=== PATIENT | female | born 1990 | race Caucasian/White ===

== ENCOUNTER 2016-06-13 17:10 | Emergency (ER) | payer OTHER | END 2016-06-13 18:53 | disposition home or self-care (01) | DX: M25.462 Effusion, left knee (principal); X50.0XXA Overexertion from strenuous movement or load, initial encounter; Y93.23 Activity, snow (alpine) (downhill) skiing, snowboarding, sledding, tobogganing and snow tubing; Y92.89 Other specified places as the place of occurrence of the external cause ==

== ENCOUNTER 2016-06-25 15:23 | Outpatient (CLI) | payer OTHER | END 2016-06-25 15:24 | disposition home or self-care (01) | DX: S89.82XA Other specified injuries of left lower leg, initial encounter (principal); M23.92 Unspecified internal derangement of left knee ==

== ENCOUNTER 2016-12-27 18:49 | Emergency (ER) | payer OTHER ==
[2016-12-27] MEDS ORDERED: LIDOCAINE 2% 10 ML MDV ONE (19:01)
[2016-12-27] MEDS ORDERED: CEPHALEXIN 250 MG CAPSULE PO STA (19:40)
--- NOTE | 2016-12-27 19:43 | ED Physician Documentation ---
History of Present Illness - Stated complaint Stated Complaint: FINGER PX - Chief complaint Chief Complaint: Ext Problem - History obtained from History obtained from: Patient - History of Present Illness Timing: How many days ago (several) Pain level max: 4 Pain level now: 3 Improved by: nothing Worsened by: nothing - Additonal information Additional information: L index finger, swelling, erythema. Drained pus earlier Review of Systems Constitutional: denies: Fever, Chills Nose: denies: Rhinorrhea / runny nose, Congestion GI: denies: Vomiting : denies: Now EGA Skin: denies: Rash PD PAST MEDICAL HISTORY - Past Medical History Past Medical History: No - Past Surgical History Past Surgical History: Yes HEENT: Tonsil/Adenoidectomy - Present Medications Home Medications: Ambulatory Orders Medication Instructions Recorded Confirmed Cephalexin [Keflex] 500 mg PO Q6H #28 capsule 12/27/16 buPROPion [Wellbutrin Sr] 100 mg PO DAILY 12/27/16 12/27/16 busPIRone [Buspar] 10 mg PO DAILY 12/27/16 12/27/16 - Allergies Allergies/Adverse Reactions: Allergies Allergy/AdvReac Type Severity Reaction Status Date / Time No Known Drug Allergies Allergy Verified 12/27/16 19:12 - Social History Does the pt smoke?: Yes Smoking Status: Current every day smoker Does the pt drink ETOH?: Yes Does the pt have substance abuse?: No - Immunizations Immunizations are current?: No Immunizations: TDAP >10years/unknown - POLST Patient has POLST: No PD ED PE NORMAL - Vitals Vital signs reviewed: Yes (initial pulse ox was 98% on RA not 89%.) - General General: Alert and oriented X 3, No acute distress - Derm Derm: Warm and dry - Extremities Extremities: Other (L index finger - paronychia with cellulitis over the distal phalanx of the finger. NVI. slight streak up the finger. ) - Neuro Neuro: Alert and oriented X 3 - Psych Psych: Normal mood, Normal affect Results - Vitals Vitals: Vital Signs - 24 hr 12/27/16 12/27/16 18:52 19:47 Temperature 36.7 C Heart Rate 80 88 Respiratory 18 16 Rate Blood Pressure 130/91 H 128/81 H O2 Saturation 89 L 98 Oxygen O2 Source Room air Procedures - General procedure General procedure: L index finger paronychia - Verbal consent obtained. 2% lidocaine was used for a trans-thecal digital block with excellent anesthesia achieved. An #11 blade was then used to elevate the nail fold off of the nail and purulent material obtained. Tolerated well. No complications. dressing applied PD MEDICAL DECISION MAKING - ED course Complexity details: considered differential, d/w patient ED course: Patient is a 26-year-old female with a left paronychia with surrounding cellulitis. The paronychia was drained, but given the streaking up the left index finger, will cover with antibiotics as well. She is well-appearing, nontoxic. Afebrile. Patient counseled regarding signs and symptoms for which I believe and urgent re-evaluation would be necessary. Patient with good understanding of and agreement to plan and is comfortable going home at this time This document was made in part using voice recognition software. While efforts are made to proofread this document, sound alike and grammatical errors may occur. Departure - Departure Disposition: 01 Home, Self Care Clinical Impression: Paronychia Qualifiers: Laterality: left Qualified Code(s): L03.012 - Cellulitis of left finger Condition: Good Instructions: ED Fingernail Infec Follow-Up: Deborah Salazar PA-C [Primary Care Provider] - Within 1 week (for wound check) Prescriptions: Cephalexin [Keflex] 500 mg PO Q6H #28 capsule Comments: Take all antibiotics until gone. Return if you worsen. Discharge Date/Time: 12/27/16 19:59
[2016-12-27 19:48] VITALS: BP 128/81
[2016-12-27] MEDS ORDERED: CEPHALEXIN 250 MG CAPSULE PO ONE (19:48)
== END 2016-12-27 19:59 | disposition home or self-care (01) ==
LOC: ED 18:49
DX: L03.012 Cellulitis of left finger (principal); F17.200 Nicotine dependence, unspecified, uncomplicated
CPT/HCPCS: 11730; 99283; A9270

== ENCOUNTER 2017-06-08 11:56 | Emergency (ER) | payer OTHER ==
[2017-06-08 12:02] VITALS: BP 144/94
[2017-06-08] MEDS ORDERED: BENZONATATE 100 MG CAPSULE PO STA (13:23)
[2017-06-08] MEDS ORDERED: BENZOCAINE/MENTHOL LOZENGE MM STA (13:23)
--- NOTE | 2017-06-08 13:23 | ED Physician Documentation ---
History of Present Illness - Stated complaint Stated Complaint: SORE THROAT - Chief complaint Chief Complaint: Heent - Additonal information Additional information: hx from pt 26 female on control to ER with congestion sinus pressure core throat and a cough no fever taking sudafed no GI sx Review of Systems Constitutional: denies: Fever Ears: reports: Reviewed and negative. denies: Ear pain Nose: reports: Sinus pressure / pain Throat: reports: Sore throat Respiratory: denies: Cough GI: denies: Abdominal Pain, Nausea, Vomiting : denies: Now EGA Immunocompromised: denies: Immunocompromised PD PAST MEDICAL HISTORY - Past Medical History Past Medical History: No - Past Surgical History Past Surgical History: Yes HEENT: Tonsil/Adenoidectomy - Present Medications Home Medications: Ambulatory Orders Medication Instructions Recorded Confirmed Benzonatate [Tessalon] 100 mg PO TID PRN #20 capsule 06/08/17 Dextromethorphan/Benzocaine 1 each PO Q4H PRN #20 lozenge 06/08/17 [Cepacol Sorethroat-Cough Tomy] Fluticasone [Flonase] 1 sprays JL BID PRN #1 bottle 06/08/17 Medroxyprogesterone Acetate 150 mg IM ONCE 06/08/17 06/08/17 [Depo-Provera] - Allergies Allergies/Adverse Reactions: Allergies Allergy/AdvReac Type Severity Reaction Status Date / Time No Known Drug Allergies Allergy Verified 06/08/17 12:02 - Social History Does the pt smoke?: Yes Smoking Status: Current every day smoker Does the pt drink ETOH?: Yes ETOH Use: Beer Does the pt have substance abuse?: No - Immunizations Immunizations are current?: No Immunizations: TDAP >10years/unknown - POLST Patient has POLST: No PD ED PE NORMAL - Vitals Vital signs reviewed: Yes - General General: Alert and oriented X 3 - HEENT HEENT: PERRL, Ears normal, Moist mucous membranes. No: Pharynx benign (brandie erythema and mild swelling on L no trismus or [employer] no exudate) - Neck Neck: Supple, no meningeal sign - Cardiac Cardiac: RRR - Respiratory Respiratory: No respiratory distress - Neuro Neuro: Alert and oriented X 3 Results - Vitals Vitals: Vital Signs - 24 hr 06/08/17 11:59 Temperature 36.6 C Heart Rate 82 Respiratory 16 Rate Blood Pressure 144/94 H O2 Saturation 100 Oxygen O2 Source Room air - Labs Labs: Laboratory Tests 06/08/17 12:15 Group A Strep Rapid Negative PD MEDICAL DECISION MAKING - ED course ED course: did not meet pearl nicholas rapid strep which was neg will dc with sx meds Departure - Departure Disposition: Home, Self Care Clinical Impression: Sore throat Condition: Good Instructions: ED Pharyngitis Viral Report Pending Prescriptions: Benzonatate [Tessalon] 100 mg PO TID PRN #20 capsule PRN Reason: to ease cough Dextromethorphan/Benzocaine [Cepacol Sorethroat-Cough Tomy] 1 each PO Q4H PRN # 20 lozenge PRN Reason: sore throat Fluticasone [Flonase] 1 sprays JL BID PRN #1 bottle PRN Reason: allergies Comments: The rapid strep test was negative. An official throat culture will also be run and the ER staff will call you if it is positive and you need antibiotics But for right now it looks like the infection is viral - that does not make you any less ill but means antibiotics won't help and the treatment is symptomatic Rest, drink plenty of fluids, motrin and tylenol for pain, sudafed and flonase for congestion, cepacol for the sore throat, tessalon for the cough
== END 2017-06-08 13:47 | disposition home or self-care (01) ==
LOC: ED 11:56
DX: J02.9 Acute pharyngitis, unspecified (principal); R09.81 Nasal congestion; R05 Cough; F17.200 Nicotine dependence, unspecified, uncomplicated
CPT/HCPCS: 87070; 87430; 99283; A9270

== ENCOUNTER 2017-08-19 14:58 | Outpatient (CLI) | payer OTHER | END 2017-08-19 14:59 | disposition home or self-care (01) | LOC: LAB.R 14:58 | PROVIDERS: ATTEND Nurse Practitioner Obstetrics & Gynecology | DX: R82.99 Other abnormal findings in urine (principal); Z11.3 Encounter for screening for infections with a predominantly sexual mode of transmission | CPT/HCPCS: 87086; 87491; 87591 ==

== ENCOUNTER 2017-09-15 08:00 | Outpatient (CLI) | payer OTHER ==
[2017-09-15 17:41] LABS: BASOPHILS % (AUTO) 0.7 %; EOSINOPHILS % (AUTO) 0.7 %; HGB - HEMOGLOBIN 14.3 g/dL (12.0-16.0); LYMPHOCYTES # (AUTO) 1.8 10^3/uL (1.5-3.5); LYMPHOCYTES % (AUTO) 29.3 %; MEAN CORPUSCULAR HEMOGLOBIN 28.9 pg (27.0-31.0); MEAN CORPUSCULAR HGB CONC 33.7 g/dL (32.0-36.0); MEAN PLATELET VOLUME 8.9 fL (7.9-10.8); MONOCYTES # (AUTO) 0.3 10^3/uL (0.0-1.0); MONOCYTES % (AUTO) 4.5 %; NEUTROPHILS % (AUTO) 64.8 %; PLT - PLATELET COUNT 297 10^3/uL (130-450); RED BLOOD COUNT 4.93 10^6/uL (4.20-5.40); RED CELL DISTRIBUTION WIDTH 12.8 % (12.0-15.0); WHITE BLOOD COUNT 6.2 x10^3/uL (4.8-10.8)
[2017-09-15 17:59] LABS: ALBUMIN 4.4 g/dL (3.2-5.5); ALBUMIN/GLOBULIN RATIO 1.5 (1.0-2.2); BILIRUBIN,TOTAL 0.4 mg/dL (0.2-1.0); CALCIUM 9.3 mg/dL (8.5-10.3); CREATININE 0.7 mg/dL (0.4-1.0); TOTAL PROTEIN 7.3 g/dL (6.7-8.2)
== END 2017-09-15 08:01 ==
LOC: LAB.F 08:00
PROVIDERS: ATTEND Physician Assistant Medical
DX: Z00.00 Encounter for general adult medical examination without abnormal findings (principal); E55.9 Vitamin D deficiency, unspecified
CPT/HCPCS: 36415; 80053; 82306; 85025

== ENCOUNTER 2018-03-13 14:32 | Emergency (ER) | payer OTHER ==
[2018-03-13] MEDS ORDERED: BUFFERED LIDOCAINE 10 ML SYRINGE SUBQ STA (14:58)
[2018-03-13] MEDS ORDERED: TETANUS/DIPHTHERIA/PERTUSSIS 0.5 ML SYRINGE IM ONE (15:32)
--- NOTE | 2018-03-13 15:34 | ED Physician Documentation ---
PD HPI UPPER EXT INJURY - Stated complaint Stated Complaint: R HAND LAC - Chief complaint Chief Complaint: Laceration - History obtained from History obtained from: Patient - History of Present Illness Location: Right, Hand Type of injury: Laceration Where injury occurred: Work Timing - onset: Today Timing - duration: Minutes Timing - details: Abrupt onset, Still present Improved by: Rest Worsened by: Moving, Palpating Associated symptoms: No: Weakness, Numbness, Tingling Contributing factors: No: Anticoagulated Similar symptoms before: Has not had sx before Recently seen: Not recently seen - Additonal information Additional information: 27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 Review of Systems Constitutional: denies: Fever Ears: denies: Ear pain Nose: denies: Congestion Throat: denies: Sore throat Respiratory: denies: Cough GI: denies: Vomiting Skin: reports: Laceration (s) PD PAST MEDICAL HISTORY - Past Medical History Past Medical History: No - Past Surgical History Past Surgical History: Yes HEENT: Tonsil/Adenoidectomy - Present Medications Home Medications: Ambulatory Orders Medication Instructions Recorded Confirmed Benzonatate [Tessalon] 100 mg PO TID PRN #20 capsule 06/08/17 Dextromethorphan/Benzocaine 1 each PO Q4H PRN #20 lozenge 06/08/17 [Cepacol Sorethroat-Cough Tomy] Fluticasone [Flonase] 1 sprays JL BID PRN #1 bottle 06/08/17 Medroxyprogesterone Acetate 150 mg IM ONCE 06/08/17 06/08/17 [Depo-Provera] - Allergies Allergies/Adverse Reactions: Allergies Allergy/AdvReac Type Severity Reaction Status Date / Time No Known Drug Allergies Allergy Verified 06/08/17 12:02 - Social History Does the pt smoke?: Yes Smoking Status: Current every day smoker Does the pt drink ETOH?: Yes Does the pt have substance abuse?: No - Immunizations Immunizations are current?: No Immunizations: TDAP >10years/unknown - POLST Patient has POLST: No PD ED PE NORMAL - Vitals Vital signs reviewed: Yes (hypertensive ) - General General: Alert and oriented X 3, No acute distress, Well developed/nourished - Neck Neck: Supple, no meningeal sign, No bony TTP - Respiratory Respiratory: No respiratory distress - Derm Derm: Normal color, Warm and dry, No rash - Extremities Extremities: No deformity, No edema, Other (2cm laceration to the right hand over the web space of the thumb and index. There is not involvement of deeper structures and the distal n/v is intact. ) Results - Vitals Vitals: Vital Signs - 24 hr 03/13/18 14:41 Temperature 36.4 C L Heart Rate 97 Respiratory 18 Rate Blood Pressure 141/102 H O2 Saturation 100 Oxygen O2 Source Room air Procedures - Laceration (location) R hand Length in cm: 2 Wound type: Linear Neurovascular status: Sensory intact, Motor intact Anesthesia: Lidocaine 1%, With bicarb Wound Preparation: Hibiclens, Irrigated copiously NS, Wound explored, To the base Skin layer closure: Nylon, Interrupted, Size #-0 - enter number (5-0), Sutures - enter # (3) Other: Patient tolerated well, No complications, Neurovascular intact, Dressing applied, Tetanus booster given Complexity: Simple PD MEDICAL DECISION MAKING - ED course Complexity details: considered differential, d/w patient ED course: 27 y/o female with a hand laceration is sutured. - Sepsis Event Vital Signs: Vital Signs - 24 hr 03/13/18 14:41 Temperature 36.4 C L Heart Rate 97 Respiratory 18 Rate Blood Pressure 141/102 H O2 Saturation 100 Oxygen O2 Source Room air Departure - Departure Disposition: 01 Home, Self Care Clinical Impression: Hand laceration Condition: Stable Instructions: ED Laceration Hand Follow-Up: [facility] [Provider Group] Discharge Date/Time: 03/13/18 16:34
[2018-03-13 16:16] VITALS: BP 139/96
== END 2018-03-13 16:34 | disposition home or self-care (01) ==
LOC: ED 14:32
DX: S61.411A Laceration without foreign body of right hand, initial encounter (principal); F17.200 Nicotine dependence, unspecified, uncomplicated; Z23 Encounter for immunization; W25.XXXA Contact with sharp glass, initial encounter; Y93.89 Activity, other specified; Y99.0 Civilian activity done for income or pay
CPT/HCPCS: 1040M; 12001; 90471; 90715; 99282; 99283

== ENCOUNTER 2018-12-31 10:19 | Outpatient (CLI) | payer OTHER ==
--- NOTE | 2018-12-31 12:18 | Ultrasound Report ---
Reason: RT BREAST LUMP Procedure Date: 12/31/2018 Accession Number: [id number] / [id number] Procedure: US - Breast Unilateral Limited CPT Code: FULL RESULT: EXAM: Breast Unilateral Limited DATE: 12/31/2018 11:18 AM CLINICAL HISTORY: RT BREAST LUMP COMPARISON: None. TECHNIQUE: Targeted ultrasound was performed of the right breast in the area of clinical concern at 3 o'clock and 2 cm distance from the nipple. Color Doppler was employed as appropriate. FINDINGS: A morphologically normal-appearing lymph node is identified which demonstrates a preserved fatty hilum and measures less than 1 cm in short axis. No suspicious mass or architectural distortion is seen. IMPRESSION: Benign findings RECOMMENDATION: Clinical correlation. BIRADS CATEGORY 2: Benign findings RADIA
== END 2018-12-31 10:20 | disposition home or self-care (01) ==
LOC: DI 10:19
PROVIDERS: ATTEND Physician Assistant Medical
DX: N63.10 Unspecified lump in the right breast, unspecified quadrant (principal)
CPT/HCPCS: 76642

== ENCOUNTER 2021-10-30 08:00 | Outpatient (CLI) | payer OTHER | END 2021-10-30 23:59 | disposition home or self-care (01) | LOC: LAB.N 08:00 | PROVIDERS: ATTEND Nurse Practitioner | DX: U07.1 COVID-19 (principal) ==

== ENCOUNTER 2021-11-15 08:00 | Outpatient (CLI) | payer OTHER ==
--- NOTE | 2021-11-15 19:10 | XRAY Report ---
PROCEDURE: Foot 3 View LT INDICATIONS: PAIN IN LEFT FOOT TECHNIQUE: 3 views of the foot were acquired. COMPARISON: None FINDINGS: Bones: No fractures or dislocations. No suspicious bony lesions. Soft tissues: Likely marker is seen placed over dorsal aspect of the forefoot between second and thir d metatarsal heads. No tibiotalar joint effusion. Achilles tendon appears normal. IMPRESSION: Unremarkable radiographic examination of left foot. If indicated, MRI of the foot can be done for fur ther evaluation. Reviewed by: Christopher Phelps MD on 11/15/2021 7:09 PM PDT Approved by: Christopher Phelps MD on 11/15/2021 7:09 PM PDT Station ID: [id number]
== END 2021-11-15 23:59 | disposition home or self-care (01) ==
LOC: DI.N 08:00
PROVIDERS: ATTEND Physician Assistant Medical
DX: M79.672 Pain in left foot (principal)

== ENCOUNTER 2023-11-16 15:32 | Outpatient (CLI) | payer BC ==
[2023-11-16 17:30] LABS: BASOPHILS % (AUTO) 0.7 %; EOSINOPHILS % (AUTO) 0.3 %; HCT - HEMATOCRIT 41.5 % (37.0-47.0); HGB - HEMOGLOBIN 13.6 g/dL (12.0-16.0); LYMPHOCYTES # (AUTO) 2.3 10^3/uL (1.5-3.5); LYMPHOCYTES % (AUTO) 39.2 %; MEAN CORPUSCULAR HEMOGLOBIN 29.2 pg (27.0-31.0); MEAN CORPUSCULAR HGB CONC 32.8 g/dL (32.0-36.0); MEAN CORPUSCULAR VOLUME 89.2 fL (81.0-99.0); MONOCYTES # (AUTO) 0.4 10^3/uL (0.0-1.0); MONOCYTES % (AUTO) 6.1 %; NEUTROPHILS # (AUTO) 3.1 10^3/uL (1.5-6.6); NEUTROPHILS % (AUTO) 53.5 %; PLT - PLATELET COUNT 372 10^3/uL (130-450); RED BLOOD COUNT 4.65 10^6/uL (4.20-5.40); RED CELL DISTRIBUTION WIDTH 11.8 % (12.0-15.0); WHITE BLOOD COUNT 5.9 x10^3/uL (4.8-10.8)
== END 2023-11-16 15:33 | disposition home or self-care (01) ==
LOC: LAB.N 15:32
PROVIDERS: ATTEND Obstetrics & Gynecology
DX: Z01.812 Encounter for preprocedural laboratory examination (principal); N93.9 Abnormal uterine and vaginal bleeding, unspecified
CPT/HCPCS: 36415; 85025

== ENCOUNTER 2023-11-19 06:22 | Day surgery (SDC) | payer BC, OTHER ==
--- NOTE | 2023-11-19 06:18 | ANESTHESIA ---
Pre-Anesthesia VS, & Labs - Diagnosis Desires Sterilization/Abnormal Uterine Bleeding - Procedure Lap Salpingectomy Height: 5 ft 2 in - Is Patient ?: No Home Medications and Allergies Home Medications: Ambulatory Orders Norgestimate-Ethinyl Estradiol [Sprintec 28 Day Tablet] 1 each PO DAILY 11/13/23 Serdexmethylphen/Dexmethylphen [Azstarys 39.2 mg-7.8 mg Cap] 1 each PO DAILY 12/29 Norgestimate-Ethinyl Estradiol [Sprintec 28 Day Tablet] 1 each PO DAILY 11/13/23 Serdexmethylphen/Dexmethylphen [Azstarys 39.2 mg-7.8 mg Cap] 1 each PO DAILY 11/13/23 Allergies/Adverse Reactions: Allergies Allergy/AdvReac Type Severity Reaction Status Date / Time No Known Drug Allergies Allergy Verified 11/18/23 12:45 Anes History & Medical History - Medical History Cardiovascular: reports: None Pulmonary: reports: None Gastrointestinal: reports: None Urinary: reports: None Musculoskeletal: reports: Scoliosis Endocrine/Autoimmune: reports: None Skin: reports: None Smoking Status: Current every day smoker - Surgical History Eyes Ears Nose Throat (EENT): reports: Tonsil/Adenoidectomy Exam General: Alert, Oriented x3, Cooperative Dental: WNL Mouth Openin Fingerbreadth Mallampati classification: II Thyromental Distance: 4-6 cm Cardiovascular: Regular rate Mental/Cognitive Status: Alert/Oriented X3 Cognitive Status: Within normal limits Plan Anesthesia Type: General Consent for Procedure(s) Verified and Reviewed: Yes Code Status: Attempt Resuscitation ASA classification: 1-Healthy patient Is this case an emergency?: No
[~2023-11-19 06:22] MED LIST: ATROPINE ABBOJECT 1 MG/10 ML SYRINGE IVP PRN; DEXAMETHASONE 4 MG/ML VIAL ONE; HYDROmorphone 0.5 MG/0.5 ML SYRINGE IVP PRN; LIDOCAINE-PF 2% 10 ML AMP SUBQ ONE; MIDAZOLAM 2 MG/2 ML VIAL ONE; MORPHINE 2 MG/ML CARPUJECT IVP PRN; NALOXONE 0.4 MG/ML VIAL IVP PRN; ONDANSETRON 4 MG/2 ML VIAL IVP PRN; ONDANSETRON 4 MG/2 ML VIAL ONE; PROPOFOL 200 MG/20 ML VIAL IVP ONE; ROCURONIUM 50 MG/5 ML VIAL ONE; ePHEDrine 50 MG/ML VIAL IVP PRN; fentaNYL 100 MCG/2 ML VIAL IVP PRN; fentaNYL 100 MCG/2 ML VIAL ONE
[2023-11-19 06:36] LABS: HCG UR QUAL NEGATIVE
[2023-11-19] MEDS: LACTATED RINGERS 1,000 ML IV ONE ×3 (06:53→09:33)
[2023-11-19] MEDS ORDERED: LACTATED RINGERS 1,000 ML IV SCH (07:00)
[2023-11-19] MEDS ORDERED: SILVER NITRATE APPLICATOR TOP ONE (07:24)
[2023-11-19] MEDS ORDERED: LIDOCAINE-MPF 1% 30 ML VIAL ONE (07:24)
[2023-11-19] MEDS ORDERED: BUPIVACAINE 0.5% PF 10 ML VIAL ONE (07:24)
[2023-11-19] MEDS ORDERED: LIDOCAINE 1%-EPI 1:100000 20 ML MDV ONE (07:24)
[2023-11-19] MEDS ORDERED: SUGAMMADEX 200 MG/2 ML VIAL IVP ONE (08:08)
[2023-11-19] MEDS: BUPIVACAINE 0.5% PF 10 ML VIAL IM ONE (08:26)
[2023-11-19] MEDS ORDERED: fentaNYL 100 MCG/2 ML VIAL ONE (08:35)
[2023-11-19] MEDS ORDERED: KETOROLAC 30 MG/ML VIAL ONE (08:49)
--- NOTE | 2023-11-19 09:12 | ANESTHESIA POST OP EVALUATION ---
Anesthesia Post Eval - Post Anesthesia Eval Vitals: Last Vital Signs Temp 36.2 C L 11/19/23 06:34 Pulse 96 11/19/23 06:34 Resp 14 11/19/23 06:34 BP 136/98 H 11/19/23 06:34 Pulse Ox 99 11/19/23 06:34 O2 Flow Rate CV Function Including HR & BP: Stable Pain Control: Satisfactory Nausea & Vomiting: Negative Mental Status: Baseline Respiratory Status: Airway Patent Hydration Status: Satisfactory Anesthesia Complications: None
[2023-11-19] MEDS ORDERED: ONDANSETRON 4 MG/2 ML VIAL IVP PRN (09:38)
[2023-11-19] MEDS ORDERED: oxyCODONE 5 MG TABLET PO PRN (09:38)
--- NOTE | 2023-11-19 09:40 | OPERATIVE REPORT ---
Operative Report - General Planned Procedure: Laparoscopic bilateral salpingectomy, Pap smear Pre-Op Diagnosis: Desires sterility Procedure Performed: Laparoscopic bilateral salpingectomy, Pap smear Post Op Diagnosis: Desires sterility - Procedure Note Primary Surgeon: Alberto Parra MD Secondary Surgeon: CHON Giles Anesthesia Provider: Amadou Saunders CRNA Anesthesia Technique: Other (General) Estimated Blood Loss (mL): 5 Urine Output (mL): 0 (Voided prior to procedure) Findings: Normal-appearing uterus, tubes, ovaries. Normal-appearing liver. No obvious intra-abdominal pathologies. Complications: None - Other Other Information/Narrative: Prior to surgery, we discussed the risks, alternatives, benefits to tubal ligation. We discussed long-acting control such as IUDs and implants. We had discussion about partner vasectomy and the pros and cons to this including a smaller surgery, and easier recovery. We discussed the general risk of surgery including infection, bleeding, damage to other organs, needing a larger incision. Specific to tubal ligation, we discussed the risk of regret, and discussed that regret is greater in those under 30, without children, and not in stable relationships. Patient says she is confident in her decision to not have any more children. We also discussed the risk of failure, and that less than 1/100 tubal ligation fail, but if it did, she would be at increased risk of ectopic . Patient desires to proceed with bilateral tubal ligation. Patient was taken to the OR and placed in the dorsal lithotomy position using Trevor stirrups after adequate anesthesia was obtained. Patient was prepped and draped in the usual fashion. Time out was taken A bivalve speculum was used to visualize the cervix and Pap smear was obtained. Sterile attire was exchanged and attention was turned to the abdomen. 2 mL of 0.25% Marcaine was used below the umbilicus. An 11 blade scalpel was used to incise the skin. Direct visual entry was used to place the infraumbilical trocar. Upon entering the peritoneal cavity, low flow was used to ensure appropriate positioning. Upon visualization of the abdominal cavity, high flow was then initiated. 2 additional trocars was placed under visualization in a similar fashion in the right and left lower quadrants. After visualization of the left fallopian tube, it was grasped with an atraumatic grasper. The mesosalpinx was cauterized and cut with a Ligasure device. Attention was then turned to the right fallopian tube which was then removed in a similar fashion. The abdomen was reviewed for hemostasis, and a healthy-appearing liver was noted. The trocars were then removed, and abdomen was evacuated of gas. The trocar sites were then closed with a 4-0 Monocryl in a sub-cuticular fashion and covered with Dermabond. Patient was taken to the PACU in stable condition. I appreciate the assistance of CHON Lang during this procedure, and the assistance in retraction, visualization, dissection, and overall assistance during the case were instrumental to the patient's wellbeing.
[2023-11-19 10:08] VITALS: BP 136/84; O2SAT 98
--- NOTE | 2023-11-19 10:36 | ANESTHESIA POST OP EVALUATION ---
Anesthesia Post Eval - Post Anesthesia Eval Vitals: Last Vital Signs Temp 36.6 C 11/19/23 10:06 Pulse 86 11/19/23 10:06 Resp 16 11/19/23 10:06 BP 136/84 H 11/19/23 10:06 Pulse Ox 98 11/19/23 10:06 O2 Flow Rate CV Function Including HR & BP: Stable Pain Control: Satisfactory Nausea & Vomiting: Negative Mental Status: Baseline Respiratory Status: Airway Patent Hydration Status: Satisfactory Anesthesia Complications: None
== END 2023-11-19 06:23 | disposition home or self-care (01) ==
LOC: SDS 06:22
PROVIDERS: ATTEND Obstetrics & Gynecology
PROC: 0UT74ZZ Resection of Bilateral Fallopian Tubes, Percutaneous Endoscopic Approach (ICD-10-PCS; principal; 2023-11-19 07:30)
DX: Z30.2 Encounter for sterilization (principal); Z12.4 Encounter for screening for malignant neoplasm of cervix; F17.200 Nicotine dependence, unspecified, uncomplicated
CPT/HCPCS: 58661; 81025; J7120